=== PATIENT | male | born 1995 | race Caucasian/White ===

== ENCOUNTER 2018-09-16 21:22 | Emergency (ER) | payer OTHER ==
[~2018-09-16] VITALS: Ht 182.9 cm; Wt 68.0 kg
[2018-09-16] MEDS ORDERED: IBUPROFEN 200200 M1 PO (21:37)
[2018-09-16] MEDS ORDERED: CEPACOL SORE T1 EAC7 BUCCAL (23:04)
[2018-09-16] MEDS ORDERED: MOBIC7.5 MG PO (23:04)
[2018-09-16] MEDS ORDERED: PENICILLIN VK500 M1 PO (23:04)
[2018-09-16] MEDS ORDERED: VENTOLIN HFA 1818 GM INH (23:08)
[2018-09-16 23:17] VITALS: BP 150/83
== END 2018-09-16 23:18 | disposition home or self-care (01) ==
LOC: ER 21:22
DX: J02.0 Streptococcal pharyngitis (principal); F17.210 Nicotine dependence, cigarettes, uncomplicated